=== PATIENT | female | born 1950 | race Two or more races ===

== ENCOUNTER → 2023-06-23 11:41 | Outpatient (REF) | payer MEDICARE, SELFPAY | LOC: RAD 11:41 | PROVIDERS: ATTENDING PHYSICIAN Student in an Organized Health Care Education/Training Program; FAMILY PHYSICIAN Family Medicine | DX: M79.602 Pain in left arm (principal); W19.XXXA Unspecified fall, initial encounter | CPT/HCPCS: 73060 ==